=== PATIENT | male | born 1990 | race Caucasian/White ===

== ENCOUNTER 2019-09-22 07:46 | Outpatient (CLI) | payer BC ==
--- NOTE | 2019-09-22 08:19 | RAD ---
FOUR VIEWS CERVICAL SPINE: HISTORY: Pain. FINDINGS: On the AP projection, no malalignment. Predental space is normal. No prevertebral soft tissue swelling. In the neutral position, vertebral body heights are maintained. No fracture. Mild loss of disc space height and osteophyte formation at C5-C6 and C6-C7. No significant spondylolisthesis in the neutral position. No abnormal motion upon flexion or extension. IMPRESSION: Mild degenerative changes of the cervical spine as above. Transcribed Date/Time: 09/22/2019 8:46 AM
--- NOTE | 2019-09-22 10:27 | MRI ---
MRI OF THE CERVICAL SPINE WITHOUT CONTRAST: Date: 09/22/2019 COMPARISON: None. HISTORY: Chronic neck pain. TECHNIQUE: Multiplanar, multisequence MR imaging of the cervical spine without contrast. FINDINGS: Sagittal STIR imaging demonstrates no focal area of osseous marrow edema. Cervical vertebral body hei ght and alignment appears within normal limits. C2-3: No central canal or neural foraminal stenosis. C3-4: No central canal or neural foraminal stenosis. C4-5: No central canal or neural foraminal stenosis. C5-6: No central canal or neural foraminal stenosis. C6-7: No central canal or neural foraminal stenosis. C7-T1: No central canal or neural foraminal stenosis. No focal area of abnormal signal intensity identified within cervical cord. IMPRESSION: No significant central canal or neural foraminal stenosis within the cervical spine. POS: [facility]
== END 2019-09-22 07:47 | disposition home or self-care (01) ==
LOC: SCSMRI 07:46
PROVIDERS: ATTEND Neurological Surgery
DX: M54.2 Cervicalgia (principal); M89.8X1 Other specified disorders of bone, shoulder; M47.812 Spondylosis without myelopathy or radiculopathy, cervical region
CPT/HCPCS: 72050; 72141